=== PATIENT | male | born 1935 | race Caucasian/White ===

== ENCOUNTER 2019-01-26 08:49 | Day surgery (SDC) | payer MEDICARE, BC ==
[~2019-01-26] VITALS: Ht 182.9 cm; Wt 93.6 kg
[~2019-01-26 08:49] MED LIST: BAYER CHEWABLE81 MG PO; MULTIPLE VITAMI1 TA1 PO
[2019-01-26 09:46] LABS: BASOPHILS 0.6 % (0-2); EOSINOPHILS 1.3 % (0-7); HEMOGLOBIN 14.1 g/dL (13.5-17.5); IMMATURE GRANULOCYTES 0.2 % (0-5); LYMPHOCYTES 31.6 % (15-50); MCH 32.6 pg (26.0-34.0); MCHC 34.4 g/dL (31.0-37.0); MCV 94.9 fL (80.0-100.0); MONOCYTES 18.4 % (2-11); NEUTROPHILS 47.9 % (40-80); RBC 4.32 10x6/uL (4.20-6.10); RDW 15.9 % (11.5-14.5); WBC 4.7 10x3/uL (4.8-10.8)
[2019-01-26 09:48] LABS: PLATELET COUNT 77 10x3/uL (130-400)
[2019-01-26 09:49] LABS: CALC OSMOLALITY 281 mosm/kg (275-300); CALCIUM 8.8 mg/dL (8.5-10.1); CARBON DIOXIDE 30.6 mmol/L (21.0-32.0); CHLORIDE - SERUM 104 mmol/L (98-107); GLUCOSE 94 mg/dL (74-106); POTASSIUM - SERUM 4.4 mmol/L (3.5-5.1); SODIUM 139 mmol/L (136-145); UREA NITROGEN 23 mg/dL (7-18); eGFR NON AFRICAN AMERICAN 76 mL/min (90-120)
[2019-01-26] MEDS ORDERED: ELIQUIS5 MG PO (10:03)
[2019-01-26] MEDS ORDERED: METOPROLOL TART50 MG PO (10:04)
[2019-01-26] MEDS ORDERED: POTA CHLORIDE ER 20M PO (10:05)
[2019-01-26 10:06] LABS: APTT 32.6 SECONDS (22.8-39.4); INR 1.12 (0.85-1.17); PROTIME 13.9 SECONDS (11.6-15.0)
[2019-01-26] MEDS ORDERED: FUROSEMIDE20 MG PO (10:06)
[2019-01-26] MEDS ORDERED: ACETAMINOPHEN325 MG PO (10:07)
[2019-01-26] MEDS ORDERED: [UNRECOGNIZED DRUG - OTHER] (10:08)
[2019-01-26] MEDS ORDERED: VITAMIN B COMPLEX PO (10:09)
[2019-01-26] MEDS ORDERED: CHELATED MAGNESIUM PO (10:09)
[2019-01-26 10:22] VITALS: Ht 182.9 cm; Wt 93.6 kg
--- NOTE | 2019-01-26 11:53 | NUR ---
DC INSTRUCTIONS GIVEN TO PT/FAMILY. STATE UNDERSTANDING. DC'D IV CATH FULLY INTACT.
--- NOTE | 2019-02-04 07:36 | OP ---
PATIENT NAME: AIMEE BASSETT MEDICAL RECORD: [id number] :35 LOCATION:[facility] ADMISSION DATE: SURGEON: JOSUE STERLING DO DATE OF OPERATION: 01/26/2019 PROCEDURE: EGD without biopsies. INDICATIONS FOR PROCEDURE: Gas and bloating, belching symptoms, chronic hepatitis C with cirrhosis. SCOPE: Olympus video gastroscope. MEDICATIONS: Propofol 80 mg IV per anesthesia. ESTIMATED BLOOD LOSS: None. COMPLICATIONS: None. FINDINGS: Informed consent was given. The patient was made comfortable with the above medication. After reaching an adequate level of sedation by slow IV push, the patient was placed on his left side. The endoscope was advanced under direct visualization through the mouth to the second portion of the duodenum with ease. There was evidence of grade I esophageal varices in the proximal and middle esophagus. There were no bleeding stigmata associated with these varices and the distal esophagus revealed no varices. At the GE junction, there were no major changes consistent with reflux esophagitis. The endoscope was advanced beyond the GE junction in the stomach and retroflexed to view the cardia, which appeared normal. Throughout the entire stomach, there were very minimal changes consistent with portal hypertensive gastropathy. The severity is mild. No biopsies were taken on today's examination due to the risk of bleeding with the patient's low platelet level. The endoscope was advanced beyond the pylorus into the duodenum, which appeared normal down to the second portion. The endoscope was then withdrawn back to the stomach and esophagus and the hypopharynx was looked at shortly. There were no obvious signs of reflux reaching the airway, although this cannot be entirely excluded based on appearance alone. The endoscope was completely withdrawn from the patient. The patient tolerated the procedure well and there were no complications. IMPRESSION: 1. Grade I esophageal varices of the proximal and middle esophagus without bleeding stigmata. 2. Mild portal hypertensive gastropathy. PLAN AND RECOMMENDATIONS: 1. Discharge home when recovery parameters are met. 2. GERD diet and reflux precautions. 3. Trial of omeprazole 40 mg daily times 60 days. 4. Follow up in GI clinic in 1 month to discuss any changes in symptoms. 5. If no improvement in symptoms, consider gastric emptying scan and PIPIDA scan to evaluate gallbladder. 6. Based on the risks versus benefits of repeating EGDs for surveillance of varices, I do not recommend any repeats or surveillance based on seeing very small varices involving the proximal mid esophagus only. TRANSINT:[id number] Voice Confirmation ID: [id number] DOCUMENT ID: [id number] OPERATIVE REPORT [id number] AIMEE BASSETT NATHAN A DO at 0736 CC: [id number] DICTATION DATE: 01/26/19 1119 MUSIC TYPOGRAPHER: 01/26/19 1207 [facility] 01/26/19 [id number] [place] [address]
== END 2019-01-26 12:10 | disposition home or self-care (01) ==
LOC: D.OPS 08:49
PROVIDERS: Anesthesiology; ATTEND Internal Medicine Gastroenterology
DX: K76.6 Portal hypertension (principal); K31.89 Other diseases of stomach and duodenum; I85.00 Esophageal varices without bleeding; B19.20 Unspecified viral hepatitis C without hepatic coma; K74.60 Unspecified cirrhosis of liver